=== PATIENT | female | born 1985 | race Caucasian/White ===

== ENCOUNTER 2019-12-17 07:59 | Outpatient (CLI) | payer SELFPAY ==
--- NOTE | 2019-12-17 08:18 | MM_ITS ---
WS: [id number] BILATERAL DIGITAL DIAGNOSTIC MAMMOGRAM MAMMOGRAPHY WITH CAD CLINICAL INFORMATION: RT BREAST LUMP COMPARISON: None. TECHNIQUE: Bilateral CC, MLO, and ML views. FINDINGS: Scattered fibroglandular densities bilaterally. Palpable marker inner right breast. No mammographic abnormalities in this area. Ultrasound is pending . Normal left breast. ULTRASOUND BREAST RIGHT TECHNIQUE: Ultrasound right breast focused area of concern. CLINICAL INFORMATION: RT BREAST LUMP COMPARISON: None. FINDINGS: Ultrasound right breast 5:00 position. No evidence of cystic or solid mass. No underlying abnormaliti es. No lesions to target for biopsy. MM/[place] [id number] IMPRESSION: BI-RADS: 2-Benign FOLLOW UP: Age 39 Recommend annual screening mammography age 39 Additional management of the palpable abnormality should be based on clinical g rounds.
== END 2019-12-17 08:00 | disposition home or self-care (01) ==
PROVIDERS: PCP General Practice; Visit Provider General Practice
DX: N63.14 Unspecified lump in the right breast, lower inner quadrant (principal)
CPT/HCPCS: 76642; 77066

== ENCOUNTER 2020-05-12 16:24 | Outpatient (CLI) | payer SELFPAY ==
[2020-05-12 17:57] LABS: Alanine Aminotransferase 15 U/L (0-33); Albumin Level 4.2 g/dL (3.5-5.2); Alkaline Phosphatase 70 IU/L (35-105); Aspartate Amino Transferase 18 U/L (0-32); Blood Urea Nitrogen 9 mg/dL (6-20); Calcium 9.4 mg/dL (8.5-10.5); Carbon Dioxide 23 mmol/L (22-29); Chloride 99 mmol/L (98-107); Globulin 2.9 g/dL (1.3-4.6); Glomerular Filtration Rate 113.8 mL/min (90-130); Glucose 146 mg/dL (65-115); Osmolality Calculated 279 mOsm/kg (285-295); Sodium 135 mmol/L (136-145); Total Bilirubin 0.2 mg/dL (0.15-1.2); Total Protein 7.1 g/dL (6.6-8.7)
[2020-05-12 19:03] LABS: Estmated Average Glucose 157; Hemoglobin A1C 7.1 % (4.0-6.0)
== END 2020-05-12 16:25 | disposition home or self-care (01) ==
LOC: LAB 16:25
PROVIDERS: PCP General Practice; Visit Provider General Practice
DX: E11.9 Type 2 diabetes mellitus without complications (principal)
CPT/HCPCS: 80053; 83036

== ENCOUNTER 2021-09-11 10:26 | Emergency (ER) | payer BC, MEDICAID, SELFPAY ==
[2021-09-11 10:36] VITALS: BP 122/78; PULSE 79; RESP 18; TEMP 36.7; O2SAT 99; BMI 35.1
--- NOTE | 2021-09-11 10:42 | ECG_ITS ---
[facility] Test Date: 2021-09-11 Pat Name: Ophelia Delong Department: Room: Gender: Female Corporate Development Officer: : 1985 Requested By: Chan Tejeda Order Number: [id number] Karen MD: Ethan Carranza M.D. Measurements Intervals [place] Rate: 80 P: 63 DE: 161 QRS: 29 QRSD: 100 T: 59 QT: 380 QTc: 439 Interpretive Statements SINUS RHYTHM INCOMPLETE RIGHT BUNDLE BRANCH BLOCK [90+ ms QRS DURATION, TERMINAL R IN V1/V2, 40+ ms S IN I/aVL/V4/V5/V6] No previous ECG available for comparison Electronically Signed On 09-11-2021 14:23:35 CDT by Ethan Carranza M.D. [id number]
--- NOTE | 2021-09-11 10:42 | XR_ITS ---
WS: [id number] PORTABLE CHEST HISTORY: chest pain COMPARISON: None available. Lungs are clear and well expanded. No pleural effusion or pneumothorax. Cardiac size: Normal. Mediastinum/Aorta: Normal mediastinum. No osseous abnormality seen. XR/XR chest 1V portable [id number] IMPRESSION: Unremarkable portable chest.
[2021-09-11 11:05] LABS: Basophils # 0.1 10^3/uL (0.0-0.1); Basophils % 0.8 %; Eosinophils # 0.2 10^3/uL (0.0-0.8); Eosinophils % 2.2 %; Hematocrit 39.4 % (37.0-47.0); Hemoglobin 13.6 g/dL (11.5-15.3); Lymphocytes # 2.5 10^3/uL (0.8-4.8); Lymphocytes % 33.2 %; Mean Corpuscular HGB Conc 34.5 g/dL (30.0-36.0); Mean Corpuscular Hemoglobin 28.8 pg (28.0-34.0); Mean Corpuscular Volume 83.3 fl (81-99); Mean Platelet Volume 9.2 fL (7.4-10.4); Monocytes # 0.4 10^3/uL (0.2-0.9); Monocytes % 5.4 %; Neutrophils # 4.38 10^3/uL (1.8-7.7); Nucleated Red Blood Cells % 0 %; Platelet Count 336 10^3/cmm (130-400); Red Blood Count 4.73 10^6/uL (4.1-5.3); Red Cell Distribution Width 13.2 % (12.1-15.1); White Blood Count 7.6 10^3/uL (4.0-10.0)
--- NOTE | 2021-09-11 11:06 | ED_ITS ---
HPI - Chest Pain General: Chief Complaint: Chest Pain Stated Complaint: CP, numbness in both arms Time Seen by Provider: 09/11/21 10:42 History of Present Illness: HPI narrative: 36-year-old female presents emergency room complaining of pain off and on for the last couple of weeks per the nursing triage note when I went seen her she told me it was the least a week. She got numbness and tingling in the arms at times but no pain actually in the arms or neck she does get short of breath when she gets these episodes are self-limiting she is not noticed anything that exacerbates or relieves. She is not had any respiratory symptoms no vomiting or diarrhea no cough no fever. She not previously been known to have heart disease she is a type II diabetic and is on Metformin and sulfonylurea. Patient is a non-smoker. No no family history of early coronary artery disease. MD complaint: chest heaviness and chest discomfort Onset (ago): week(s) (2-3) Timing of current episode: episodic Onset: during rest Pain location: substernal Pain radiation: none Severity: mild Quality: heaviness Relieving factors: nothing Exacerbating factors: nothing Associated symptoms: Deny abdominal pain, diaphoresis, dyspnea, fever(s), leg edema, nausea, palpitations, sense of impending doom, syncope or vomiting Treatment prior to arrival: none Review of Systems Const: Denies: fever(s) or diaphoresis ENMT: Denies: throat pain, ear or mastoid pain, nasal discharge or nasal congestion Card: Denies: palpitations or syncope Resp: Denies: dyspnea GI: Denies: abdominal pain, nausea or vomiting : Denies: flank pain, difficulty voiding, dysuria, urinary frequency or urinary urgency Skin/Breast: Denies: rash or pruritus [facility] ED Female Reproductive History: Date of last menstrual period: 09/10/21 Physical Exam Const: COMMON NORMALS: no acute distress GENERAL APPEARANCE: cooperative and comfortable ORIENTATION/CONSCIOUSNESS: Yes oriented to person, Yes oriented to place and Yes oriented to time HENMT: COMMON NORMALS: normocephalic, atraumatic and hearing grossly normal bilaterally HEAD & SCALP: normocephalic and atraumatic Neck/C-Spine: COMMON NORMALS: no JVD Resp: COMMON NORMALS: normal respiratory effort, No retractions, No use of accessory muscles and clear to auscultation bilaterally AUSCULTATION: clear to auscultation bilaterally Cardio: COMMON NORMALS: no JVD, regular rate, regular rhythm and No murmurs present (Cardio) RATE: regular rate RHYTHM: regular rhythm GI: COMMON NORMALS: Soft to palpation and No hepatosplenomegaly present AUSCULTATION: Yes normoactive bowel sounds PALPATION: Yes Soft to palpation, No Tenderness to palpation present (GI), No Guarding due to palpation present (GI) and Yes No hepatosplenomegaly present Extremity: COMMON NORMALS: normal to inspection, capillary refill normal, no clubbing, cyanosis or edema, no calf tenderness and no pedal edema Neuro: SENSORIUM/ORIENTATION: Yes oriented to person, Yes oriented to place and Yes oriented to time Skin: COMMON NORMALS: no rashes or lesions noted GENERAL SKIN EXAM: no rashes or lesions noted Course Vital Signs: Vital signs: Vital Signs Temperature 97.6 F 09/11/21 14:06 Pulse Rate 66 09/11/21 14:06 Respiratory Rate 19 H 09/11/21 14:06 Blood Pressure 134/77 09/11/21 14:06 Pulse Oximetry 99 09/11/21 14:06 MDM - Chest Pain MDM Narrative: Medical decision making narrative: Started on omeprazole. Reviewed labs and imaging and EKG with patient will discharge home follow-up with primary care doctor is any worsening or change symptoms return. Lab Data: Labs: Lab Results 09/11/21 09/11/21 09/11/21 11:01 11:01 11:01 WBC 7.6 10^3/uL 10^3/ uL (4.0-10.0) RBC 4.73 10^6/uL 10^6 /uL (4.1-5.3) Hgb 13.6 g/dL g/dL (11.5-15.3) Hct 39.4 % % (37.0-47.0) MCV 83.3 fl fl (81-99) MCH 28.8 pg pg (28.0-34.0) MCHC 34.5 g/dL g/dL (30.0-36.0) RDW 13.2 % % (12.1-15.1) Plt Count 336 10^3/cmm 10^3 /cmm (130-400) MPV 9.2 fL fL (7.4-10.4) Neut % (Auto) 58.0 % % Lymph % (Auto) 33.2 % % Osborne % (Auto) 5.4 % % Eos % (Auto) 2.2 % % Baso % (Auto) 0.8 % % Neut # (Auto) 4.38 10^3/uL 10^3 /uL (1.8-7.7) Lymph # (Auto) 2.5 10^3/uL 10^3/ uL (0.8-4.8) Osborne # (Auto) 0.4 10^3/uL 10^3/ uL (0.2-0.9) Eos # (Auto) 0.2 10^3/uL 10^3/ uL (0.0-0.8) Baso # (Auto) 0.1 10^3/uL 10^3/ uL (0.0-0.1) Nucleated RBC % (a uto) 0 % % Nucleated RBCs # 0.0 /100WBC /100W BC Sodium 139 mmol/L mmol/L (136-145) Potassium 4.7 mmol/L mmol/L (3.5-5.1) Chloride 106 mmol/L mmol/L (98-107) Carbon Dioxide 22 mmol/L mmol/L (22-29) Anion Gap 15.7 (5-19) BUN 9 mg/dL mg/dL (6-20) Creatinine 0.4 mg/dL L mg/dL (0.5-0.9) GFR Calculation 179.6 mL/min H mL /min (90-130) Glucose 139 mg/dL H mg/dL (65-115) Calculated Osmolal ity 289 mOsm/kg mOsm/ kg (285-295) Calcium 8.8 mg/dL mg/dL (8.5-10.5) Total Bilirubin 0.3 mg/dL mg/dL (0.15-1.2) AST 16 U/L U/L (0-32) ALT 9 U/L U/L (0-33) Alkaline Phosphata se 66 IU/L IU/L (35-105) Troponin T Baselin e 6 ng/L ng/L (0-10) Troponin T 120 Min vera Delta Troponin T Total Protein 6.7 g/dL g/dL (6.6-8.7) Albumin 4.1 g/dL g/dL (3.5-5.2) Globulin 2.6 g/dL g/dL (1.3-4.6) 09/11/21 12:27 WBC RBC Hgb Hct MCV MCH MCHC RDW Plt Count MPV Neut % (Auto) Lymph % (Auto) Osborne % (Auto) Eos % (Auto) Baso % (Auto) Neut # (Auto) Lymph # (Auto) Osborne # (Auto) Eos # (Auto) Baso # (Auto) Nucleated RBC % (a uto) Nucleated RBCs # Sodium Potassium Chloride Carbon Dioxide Anion Gap BUN Creatinine GFR Calculation Glucose Calculated Osmolal ity Calcium Total Bilirubin AST ALT Alkaline Phosphata se Troponin T Baselin e Troponin T 120 Min vera 6.00 ng/L ng/L (0-10) Delta Troponin T 0 ABS# ABS# (0-10) Total Protein Albumin Globulin Discharge Plan Discharge Patient Disposition: Home Clinical Impression: Atypical chest pain Condition: Stable Prescriptions: New omeprazole 40 mg capsule,delayed release(DR/EC) 40 mg PO DAILY 84 Days RF: 0 Discharge Orders: Discharge ED (Routine); Ordered 09/11/21 Ordered By: Chan Freeman Referrals: Major Gutierrez MD [Primary Care Provider] - Discharge Diet: As Directed Discharge Activity: Resume usual activity Patient Instructions: Opioid Safety Coding Level of Care Code ED Underpresser Hand for Elma Watson
[2021-09-11] MEDS: sodium chloride 0.9% 500 ML 999 ML IV (11:18)
[2021-09-11 11:20] VITALS: BP 102/73; PULSE 80; RESP 19; O2SAT 99
[2021-09-11 11:23] LABS: Alanine Aminotransferase 9 U/L (0-33); Albumin Level 4.1 g/dL (3.5-5.2); Alkaline Phosphatase 66 IU/L (35-105); Blood Urea Nitrogen 9 mg/dL (6-20); Calcium 8.8 mg/dL (8.5-10.5); Carbon Dioxide 22 mmol/L (22-29); Chloride 106 mmol/L (98-107); Globulin 2.6 g/dL (1.3-4.6); Glomerular Filtration Rate 179.6 mL/min (90-130); Glucose 139 mg/dL (65-115); Osmolality Calculated 289 mOsm/kg (285-295); Sodium 139 mmol/L (136-145); Total Bilirubin 0.3 mg/dL (0.15-1.2); Total Protein 6.7 g/dL (6.6-8.7)
[2021-09-11 11:24] LABS: Troponin(5th) Baseline 6 ng/L (0-10)
[2021-09-11 11:25] LABS: Anion Gap 15.7 (5-19); Aspartate Amino Transferase 16 U/L (0-32); Potassium 4.7 mmol/L (3.5-5.1)
[2021-09-11 13:06] LABS: Troponin 5 2HR Delta 0 ABS# (0-10)
[2021-09-11 14:06] VITALS: BP 134/77; PULSE 66; RESP 19; TEMP 36.4; O2SAT 99
== END 2021-09-11 14:10 | disposition home or self-care (01) ==
PROVIDERS: Emergency Provider Family Medicine; PCP Family Medicine
DX: R07.89 Other chest pain (principal)
CPT/HCPCS: 71045; 80053; 84484; 85025; 93005; 99283; J7040

== ENCOUNTER → 2022-04-11 09:29 | Outpatient (BNVA) | payer BC, MEDICAID, SELFPAY | PROVIDERS: PCP Family Medicine; Referring Provider Family Medicine; Visit Provider Specialist | DX: G56.01 Carpal tunnel syndrome, right upper limb (principal) | CPT/HCPCS: 95910 ==

== ENCOUNTER → 2022-05-30 14:31 | Outpatient (BNVA) | payer BC, MEDICAID, SELFPAY | PROVIDERS: PCP Family Medicine; Referring Provider Family Medicine; Visit Provider Orthopaedic Surgery | DX: G56.01 Carpal tunnel syndrome, right upper limb (principal) | CPT/HCPCS: 99203 ==

== ENCOUNTER 2022-11-07 13:01 | Outpatient (CLI) | payer BC, MEDICAID, SELFPAY ==
--- NOTE | 2022-11-07 13:15 | XR_ITS ---
WS: [id number] EXAMINATION: XR chest 2V* [id number] REASON FOR EXAM: SUBACUTE COUGH COMPARISON: 09/11/2021 ORDER DATE: 11/07/2022 1:15 PM FINDINGS: There is an acute patchy left lower lobe infiltrate area The cardiac and mediastinal outlines are un remarkable. There are no significant pleural effusions . No significant abnormalities are noted in th e spine or remainder of the bony thorax. XR/XR chest 2V* [id number] IMPRESSION: SMALL LEFT LOWER LOBE PNEUMONIA
== END 2022-11-07 13:02 | disposition home or self-care (01) ==
PROVIDERS: PCP Family Medicine; Visit Provider Family Medicine
DX: R05.9 Cough, unspecified (principal); J18.9 Pneumonia, unspecified organism
CPT/HCPCS: 71046

== ENCOUNTER 2023-03-28 08:31 | Day surgery (SDC) | payer BC, MEDICAID, SELFPAY ==
[2023-03-27 13:49] VITALS: BMI 37.4
[2023-03-28 08:54] LABS: OR HCG Qualitative Urine Negative (Negative)
[2023-03-28 08:59] VITALS: BP 106/75; PULSE 74; RESP 18; TEMP 36.3; O2SAT 100
[2023-03-28 09:09] LABS: Glucose Point of Care 143 mg/dL (70-110)
[2023-03-28] MEDS: sodium chloride 0.9% 1,000 ML 30 ML IV (09:09)
--- NOTE | 2023-03-28 10:07 | W.PM.OPSUD ---
Surgery/Procedure H&P Update DATE OF PROCEDURE: March 28, 2023 DATE H&P PERFORMED: 03/19/23 H&P UPDATE INFORMATION: I have reviewed H&P completed within last 30 days PREOP DIAGNOSIS: Carpal tunnel syndrome right PLANNED PROCEDURE: Operation Date: 03/28/23 10:10 Proposed Procedures p right carpal tunnel release/ 37172, G56.01(Right) - Johnson Ogden MD
[2023-03-28] MEDS: ceFAZolin 2,000 MG in sodium chloride 0.9% (plus) 50 ML 100 MG IV (10:31)
[2023-03-28 11:08] VITALS: BP 135/81; PULSE 89; RESP 16; TEMP 36.1; O2SAT 96
--- NOTE | 2023-03-28 11:09 | PM.OP ---
Operative Report Date of procedure: March 28, 2023 Pre-op diagnosis: Preop Diagnosis Carpal tunnel syndrome right Post-op diagnosis: same Post-op diagnosis: Same Procedure done: [] carpal tunnel release Pathology: none sent Surgeon: Johnson Ogden Anesthesia: Local Estimated blood loss (mL): 2 Tourniquet time (min): 9 Findings: No masses or space-occupying lesions were seen within the carpal tunnel Condition: stable Disposition: PACU Procedure: Patient was taken to the operating room and anesthesia provided by the anesthesia service. She was prepped and draped with the arm exposed. A timeout was performed. The skin was initially anesthetized with 3 cc of half percent Marcaine. A 3 cm long incision was made in line with the fourth ray from the distal edge of the carpal tunnel extending proximally. The subcutaneous fat and palmar fascia was divided with a scalpel blade. Under loupe magnification the ulnar neurovascular bundle was identified distally. A hemostat could be passed under the transverse carpal ligament allowing the distal 25% to be divided. A slotted guide was then passed beneath the transverse carpal ligament and the middle 50% divided. Blunt scissors were then passed over the guide freeing the proximal ligament. The tourniquet was deflated. Hemostasis provided with electrocautery. Wound edges were infiltrated with an additional 7 cc of a half percent Marcaine solution. Skin edges were reapproximated with 3-0 Prolene. Sterile dressings were applied. The patient was taken to the recovery room in stable condition
[2023-03-28 11:13] VITALS: BP 129/82; PULSE 80; RESP 16; O2SAT 96
[2023-03-28 11:18] VITALS: BP 138/86; PULSE 86; RESP 16; O2SAT 96
[2023-03-28 11:20] VITALS: BP 151/76; PULSE 68; RESP 16; TEMP 36.2; O2SAT 97
[2023-03-28] MEDS: HYDROcodone-acetaminophen 5-325 mg Tablet 1 TAB PO (11:50)
--- NOTE | 2023-03-28 13:38 | ANES.PREANE2 ---
Pre-Anesthetic Assessment Height/Weight: Height 1.65 m Weight 102.058 kg Temp Pulse Resp BP Pulse Ox O2 Del Method 97.2 F L 68 16 151/76 97 Room Air 03/28/23 11:20 03/28/23 11:20 03/28/23 11:20 03/28/23 11:20 03/28/23 11:20 03/28/23 11:20 Preop Diagnosis: Carpal tunnel syndrome right Operation Date: 03/28/23 10:10 Proposed Procedures p right carpal tunnel release/ 54318, G56.01(Right) - Johnson Ogden MD Familial anesthetic complications: none Was Beta Larry taken within 24 hours: N/A Was Clonidine taken within 24 hours: N/A Last intake: Intake Last Liquid Date 03/27/23 Last Liquid Time 23:00 Last Solid Date 03/27/23 Last Solid Time 21:30 Social No alcohol and No tobacco Exam alert, oriented x 3, clear to auscultation bilaterally and regular rate & rhythm Airway Submandibular: within normal limits Cervical ROM: within normal limits Mallampati: Class II Dentition: full CV/HEM Hypertension Metabolic Diabetes Mellitus and Morbid Obesity Neuropsych Anxiety and Depression Anesthetic Plan ASA status: 3 Anesthesia: Choice Medications/Allergies Home Medications Medication Instructions Recorded Confirmed Last Taken Type buspirone 5 mg tablet 7.5 mg PO BID 04/11/22 03/28/23 03/27/23 20:00 History escitalopram oxalate 10 mg tablet 10 mg PO DAILY 04/11/22 03/28/23 03/27/23 20:00 History (Lexapro) glyburide 5 mg tablet 5 mg PO BID 04/11/22 03/28/23 03/27/23 05:30 History lisinopril 2.5 mg tablet 2.5 mg PO DAILY 04/11/22 03/28/23 03/26/23 History metformin 1,000 mg tablet 1,000 mg PO BID 04/11/22 03/28/23 03/27/23 05:30 History dorzolamide 22.3 mg-timolol 6.8 1 drp ophthalmic (eye) DAILY 03/27/23 03/28/23 03/28/23 History mg/mL eye drops dulaglutide 0.75 mg/0.5 mL mg SUBCUT 04/26/23 04/25/23 History subcutaneous pen injector (Trulicity) hydrocodone 5 mg-acetaminophen 325 1 tab PO Q4H #20 tabs 03/28/23 Unknown Rx mg tablet Allergies Allergy/AdvReac Type Severity Reaction Status Date / Time No Known Allergies Allergy Verified 03/28/23 08:47 PFSH Anesthesia Social History Smoking and tobacco status: never smoked Alcohol intake: never Substance/Drug Use: current Female Reproductive History Date of last menstrual period: 03/27/23 Data Anesthesia Cardiac Studies: No Data to Display
--- NOTE | 2023-03-28 15:23 | ANE.PACU2 ---
Inpatient post-anesthesia follow up: Airway intact: Yes Vital signs: Temperature 97.2 F Pulse Rate 68 Respiratory Rate 16 Blood Pressure 151/76 Pulse Oximetry 97 Oxygen Delivery Me thod Room Air Oxygen Flow Rate Fraction of Inspir ed Oxygen Hydration adequate: Yes Nausea and vomiting: No Pain level: 2 Mental status: Baseline
== END 2023-03-28 12:00 | disposition home or self-care (01) ==
PROVIDERS: Anesthesiology; PCP Family Medicine; Visit Provider Orthopaedic Surgery
PROC: (CPT 64721; principal; 2023-03-28 10:00)
DX: G56.01 Carpal tunnel syndrome, right upper limb (principal); I10 Essential (primary) hypertension; E11.9 Type 2 diabetes mellitus without complications; E66.01 Morbid (severe) obesity due to excess calories; Z68.37 Body mass index [BMI] 37.0-37.9, adult; F41.9 Anxiety disorder, unspecified; F32.A Depression, unspecified; Z79.84 Long term (current) use of oral hypoglycemic drugs; Z87.891 Personal history of nicotine dependence
CPT/HCPCS: 64721; 36416; 81025; 82962; 84703; J0690; J2250; J2704; J3010; J3490; J7030

== ENCOUNTER 2024-09-23 07:44 | Outpatient (CLI) | payer BC, MEDICAID, SELFPAY ==
--- NOTE | 2024-09-23 07:59 | MM_ITS ---
WS: [id number] VIEWS: MLO and CC views both breasts. 3D digital tomosynthesis is also included in this exam. Comparison made with prior exam of 12/17/2019. Findings: There are scattered areas of fibroglandular density. FINDINGS a new 5 mm spiculated nodule is noted in the central LEFT breast almost directly behind the nipple at mid depth. No new significant finding in the RIGHT breast. Compression spot images and randall onal ultrasound of the LEFT breast is indicated for further work-up. MM/MM scr BI tomosynthesis [id number] Impression: BI-RADS: 0 - Incomplete: Need additional imaging evaluation FOLLOW-UP: Need Additional Imaging This mammogram was also analyzed by the Computer Aided Detection System R2 Imag e Help Desk Supervisor.
== END 2024-09-23 07:45 | disposition home or self-care (01) ==
PROVIDERS: PCP Family Medicine; Visit Provider Family Medicine
DX: Z12.31 Encounter for screening mammogram for malignant neoplasm of breast (principal); R92.323 Mammographic fibroglandular density, bilateral breasts; N63.42 Unspecified lump in left breast, subareolar
CPT/HCPCS: 77063; 77067

== ENCOUNTER 2024-10-20 08:36 | Outpatient (CLI) | payer BC, MEDICAID, SELFPAY ==
--- NOTE | 2024-10-20 08:42 | MM_ITS ---
WS: [id number] VIEWS: MLO, CC, and ML views LEFT breast only. 3D digital tomosynthesis is also included in this exa m. Comparison made with prior exam of 09/23/2024.. Findings: There are scattered areas of fibroglandular density. Previously questioned nodular density in the anterior LEFT breast almost directly behind the nipple i s not definitely identified on compression spot images and tomography. Continued recommendation of re gional sonography. MM/MM diag LT tomosynthesis [id number] Impression: BI-RADS: 0 - Incomplete: Need additional imaging evaluation. FOLLOW-UP: Need Additional Imaging This mammogram was also analyzed by the Computer Aided Detection System R2 Imag e [employer] Manager.
--- NOTE | 2024-10-20 08:42 | US_ITS ---
WS: [id number] Exam: US breast LT limited* [id number] Date/Time of Exam: 10/20/2024 9:08 AM Reason For Exam: MAMMOGRAPHIC LEFT BREAST MASS Renal ultrasound of the anterior LEFT breast is performed with the area of interest almost directly b ehind the nipple. There is no sign of suspicious solid mass or nodule in this region. No cysts were identified. Recommendations: Continue yearly screening mammography. US/US breast LT limited* [id number] IMPRESSION: 1. No suspicious ultrasound findings. BI-RADS Category 2.
== END 2024-10-20 08:37 | disposition home or self-care (01) ==
LOC: RAD 08:37
PROVIDERS: PCP Family Medicine; Visit Provider Family Medicine
DX: R92.8 Other abnormal and inconclusive findings on diagnostic imaging of breast (principal); R92.323 Mammographic fibroglandular density, bilateral breasts
CPT/HCPCS: 76642; 77061; G0279

== ENCOUNTER 2025-10-04 08:48 | Outpatient (CLI) | payer OTHER, SELFPAY ==
--- NOTE | 2025-10-04 08:57 | MM_ITS ---
WS: [id number] BILATERAL SCREENING DIGITAL TOMOSYNTHESIS MAMMOGRAM WITH CAD HISTORY: SCREENING COMPARISON: 10/20/2024, 09/23/2024, 12/17/2019 Bilateral CC and MLO views with tomosynthesis and synthetic mammography submitted. Computer aided detection analyzed. Breast composition: There are scattered areas of fibroglandular density. No suspicious masses, microcalcifications or architectural distortion. Benign scattered calcifications. MM/MM scr BI tomosynthesis [id number] IMPRESSION: BI-RADS: 2 - Benign. FOLLOW UP: 1 Year Follow-up
== END 2025-10-04 08:49 | disposition home or self-care (01) ==
PROVIDERS: PCP Family Medicine; Visit Provider Family Medicine
DX: Z12.31 Encounter for screening mammogram for malignant neoplasm of breast (principal); R92.323 Mammographic fibroglandular density, bilateral breasts; R92.1 Mammographic calcification found on diagnostic imaging of breast
CPT/HCPCS: 77063; 77067